=== PATIENT | male | born 1965 | race Caucasian/White ===

== ENCOUNTER 2016-12-11 21:23 | Observation (INO) | payer OTHER ==
[~2016-12-11] VITALS: Ht 185.4 cm; Wt 135.0 kg
[~2016-12-11 21:23] MED LIST: ATENOLOL50 MG PO; CYMBALTA60 MG PO; Cardizem PO; DILTIAZEM 24HR120 MG PO; FENOFIBRATE160 M1 PO; LOFIBRA,TRIGLI160 MG PO; LORAZEPAM1 MG PO; Lofibra PO; OMNICEF300 M1 PO; OXYCODONE-APAP1 EAC6 PO; Omnicef PO; PLAVIX75 MG PO; Pradaxa PO; SIMVASTATIN40 MG PO; XANAX1 MG PO; ZOCOR40 MG PO; ZOLOFT100 MG PO; ZOLOFT50 MG PO; Zocor PO; Zoloft PO
[2016-12-11 21:58] LABS: MCH 28.4 PG (29.0-34.0); MCHC 32.8 G/DL (30.0-36.0); MCV 86.5 FL (86-99); MEAN PLAT.VOLUME 10.9 uM^3 (9.0-12.4); PLATELET COUNT 227 K/uL (156-360); RBC DIS.WIDTH-CV 13.1 % (11.8-14.6); RBC DIS.WIDTH-SD 40.7 % (39-53); RED BLOOD COUNT 5.32 M/uL (4.00-5.50)
[2016-12-11 22:09] LABS: CHLORIDE 108 mEq/L (99-109); POTASSIUM 4.2 mEq/L (3.7-5.4); SODIUM 142 mEq/L (136-147)
[2016-12-11 22:10] LABS: GLUCOSE 104 mg/dL (70-99)
[2016-12-11 22:12] LABS: ANION GAP 13 MEQ/L (2-14); INTER. NORMALIZED RATIO 1.1; PROTHROMBIN TIME 11.5 (9.2-11.2); PTT 30.8 (25-32)
[2016-12-11 22:14] LABS: GFR ESTIMATE (CALCULATED) > 59 mL/min/
[2016-12-11 22:15] LABS: UREA NITROGEN (BUN) 25 mg/dL (9-23)
[2016-12-11 22:25] LABS: TROP-I INTERPRETATION POSITIVE; TROPONIN-I 1.81 ng/mL (0.0-0.30)
[2016-12-12] MEDS ORDERED: ELIQUIS5 MG PO (00:24)
[2016-12-12] MEDS ORDERED: ZOLOFT100 MG PO (00:24)
[2016-12-12 07:49] LABS: TROP-I INTERPRETATION POSITIVE; TROPONIN-I 1.44 ng/mL (0.0-0.30)
[2016-12-12 12:45] LABS: TROP-I INTERPRETATION POSITIVE; TROPONIN-I 1.07 ng/mL (0.0-0.30)
[2016-12-12 16:54] VITALS: BP 162/82
[2016-12-12 19:35] VITALS: BP 108/74
[2016-12-13 00:30] VITALS: BP 110/70
[2016-12-13 03:39] VITALS: BP 82/56
[2016-12-13 06:51] LABS: ALKALINE PHOSPHATASE 61 IU/L (3-129); ANION GAP 7 MEQ/L (2-14); CHLORIDE 109 MEQ/L (99-109); GFR ESTIMATE (CALCULATED) > 59 mL/min/; GLUCOSE 85 mg/dL (70-99); MAGNESIUM 1.8 mg/dl (1.3-2.7); POTASSIUM 4.1 MEQ/L (3.7-5.4); SAMPLE HEMOLYSIS CHECK 0; SAMPLE ICTERIC CHECK 0; SAMPLE LIPEMIA CHECK 0; SODIUM 143 MEQ/L (136-147); TOTAL BILIRUBIN 0.4 MG/DL (0.0-1.0); UREA NITROGEN (BUN) 17 mg/dL (9-23)
[2016-12-13 06:53] LABS: BASOPHIL COUNT 0.1 K/uL (0-0.1); EOSINOPHIL (%) 4.5 % (0-5); EOSINOPHIL COUNT 0.3 K/uL (0-0.3); IMMATURE GRANULOCYTE (%) 0.4 % (0.0-0.7); INSTRUMENT ABS NEUTROPHIL CT 4.6 K/uL; LYMPHOCYTE COUNT 1.9 K/uL (1.0-2.8); MCH 27.5 PG (29.0-34.0); MCHC 32.2 G/DL (30.0-36.0); MCV 85.3 FL (86-99); MEAN PLAT.VOLUME 10.9 uM^3 (9.0-12.4); MONOCYTE (%) 6.7 % (3-12); MONOCYTE COUNT 0.5 K/uL (0-0.8); NEUTROPHIL (%) 61.2 % (45-76); NEUTROPHIL COUNT 4.6 K/uL (1.8-6.4); PLATELET COUNT 220 K/uL (156-360); RBC DIS.WIDTH-SD 40.3 % (39-53); RED BLOOD COUNT 5.39 M/uL (4.00-5.50)
[2016-12-13 06:55] LABS: WHITE BLOOD COUNT 7.6 K/uL (4.1-10.2)
[2016-12-13 08:30] VITALS: BP 127/88
[2016-12-13] MEDS ORDERED: CARDIZEM120 MG PO (11:53)
[2016-12-13] MEDS ORDERED: SOTALOL80 MG PO (11:53)
[2016-12-13] MEDS ORDERED: NICOTINE PATCH1 EAC1 TD (11:53)
[2016-12-13 12:11] VITALS: BP 113/76
== END 2016-12-13 13:35 | disposition home or self-care (01) ==
LOC: EME → EDBD 21:23 → 4EAST 12-12 00:42 → EDOF 12-12 00:42 → 4EAST 12-12 16:18
PROVIDERS: Emergency Medicine; Internal Medicine
DX: I48.1 Persistent atrial fibrillation (principal); I10 Essential (primary) hypertension; I42.1 Obstructive hypertrophic cardiomyopathy; E78.00 Pure hypercholesterolemia, unspecified; F41.9 Anxiety disorder, unspecified; E78.5 Hyperlipidemia, unspecified; F17.210 Nicotine dependence, cigarettes, uncomplicated; E66.9 Obesity, unspecified
CPT/HCPCS: 71010; 80048; 80053; 83735; 84484; 85025; 85027; 85610; 85730; 93005; 99281; 99285; G0378; J7030; S0028

== ENCOUNTER 2016-12-15 08:56 | Inpatient (IN) | payer OTHER ==
[~2016-12-15] VITALS: Ht 185.4 cm; Wt 134.7 kg
[~2016-12-15 08:56] MED LIST changes: +CARDIZEM120 MG PO; +ELIQUIS5 MG PO; +NICOTINE PATCH1 EAC1 TD; +SOTALOL80 MG PO
[2016-12-15 09:38] LABS: BASOPHIL COUNT 0.1 K/uL (0-0.1); EOSINOPHIL (%) 3.9 % (0-5); EOSINOPHIL COUNT 0.3 K/uL (0-0.3); HEMATOCRIT 48.4 % (38.0-50.0); IMMATURE GRANULOCYTE (%) 0.4 % (0.0-0.7); MCH 28.4 PG (29.0-34.0); MCHC 32.9 G/DL (30.0-36.0); MCV 86.6 FL (86-99); MEAN PLAT.VOLUME 10.7 uM^3 (9.0-12.4); MONOCYTE COUNT 0.6 K/uL (0-0.8); NEUTROPHIL (%) 62.6 % (45-76); PLATELET COUNT 239 K/uL (156-360); RBC DIS.WIDTH-SD 40.7 % (39-53); RED BLOOD COUNT 5.59 M/uL (4.00-5.50)
[2016-12-15 09:47] LABS: CHLORIDE 108 mEq/L (99-109); POTASSIUM 4.8 mEq/L (3.7-5.4); SODIUM 143 mEq/L (136-147)
[2016-12-15 09:50] LABS: GLUCOSE 88 mg/dL (70-99)
[2016-12-15 09:51] LABS: ANION GAP 7 MEQ/L (2-14)
[2016-12-15 09:52] LABS: TOTAL BILIRUBIN 0.4 mg/dL (0.0-1.0)
[2016-12-15 09:53] LABS: ALKALINE PHOSPHATASE 74 IU/L (3-129); GFR ESTIMATE (CALCULATED) > 59 mL/min/
[2016-12-15 09:54] LABS: UREA NITROGEN (BUN) 25 mg/dL (9-23)
[2016-12-15 10:00] LABS: TROP-I INTERPRETATION INDETERMINATE; TROPONIN-I 0.31 ng/mL (0.0-0.30)
[2016-12-15] MEDS ORDERED: NICODERM CQ1 EAC1 TD (17:25)
[2016-12-15 19:35] LABS: HDL CHOLESTEROL 26 MG/DL (Desirable>=40); LDL CHOLESTEROL 93 mg/dL (Desirable<100); NON-HDL CHOLESTEROL 142 mg/dL (Desirable<160); SAMPLE HEMOLYSIS CHECK 0; SAMPLE ICTERIC CHECK 0; SAMPLE LIPEMIA CHECK 0; TOTAL CHOLESTEROL 168 mg/dL (Desirable<200); TRIGLYCERIDES 243 MG/DL (Normal: <150)
[2016-12-15 20:32] VITALS: BP 122/81
[2016-12-15 20:52] VITALS: BP 122/81
[2016-12-15 23:20] VITALS: BP 112/65
[2016-12-16 00:41] LABS: TROP-I INTERPRETATION NEGATIVE; TROPONIN-I 0.28 ng/mL (0.0-0.30)
== END 2016-12-16 02:50 | disposition short-term general hospital (02) | DRG 311 ==
LOC: EME 08:56 → EDOF 18:13 → 4EAST 20:30
PROVIDERS: Emergency Medicine; Hospitalist
DX: I20.0 Unstable angina (principal); I10 Essential (primary) hypertension; I48.91 Unspecified atrial fibrillation; G89.29 Other chronic pain; E78.5 Hyperlipidemia, unspecified; F17.210 Nicotine dependence, cigarettes, uncomplicated; I45.10 Unspecified right bundle-branch block
CPT/HCPCS: 71020; 80048; 80053; 80061; 83880; 84484; 85025; 85027; 93005; 99281; 99285